=== PATIENT | female | born 1995 | race Caucasian/White ===

== ENCOUNTER 2019-02-21 22:53 | Observation (INO) ==
[2019-02-21 23:28] LABS: Basophils % 0.3 %; Eosinophils % 0.3 %; Hematocrit 41.3 % (35.3-44.9); Hemoglobin 14.6 g/dL (11.5-15.4); Immature Granulocytes % 0.5 % (0-4); Lymphocytes # 1.7 K/mcL (0.6-4.6); Lymphocytes % 14.2 %; Mean Corpuscular HGB Conc 35.4 g/dL (31.6-35.5); Mean Corpuscular Hemoglobin 31.3 pg (28.0-33.3); Mean Corpuscular Volume 88.4 fL (83.0-100.0); Mean Platelet Volume 10.4 fL (9.4-12.4); Monocytes # 1.1 K/mcL (0.0-1.3); Monocytes % 8.8 %; Platelet Count 321 K/mcL (140-400); Red Blood Count 4.67 M/mcL (3.82-4.97); Segmented Neutrophils % 75.9 %
[2019-02-21 23:29] LABS: White Blood Count 11.9 K/mcL (4.3-11.1)
[2019-02-22 00:37] LABS: Bacteria,Urine Moderate per hpf (None-Few); Bilirubin,Urine Small (Negative); Blood,Urine Negative (Negative); Clarity,Urine Cloudy (Clear); Color,Urine Dark Yellow (Yellow); Glucose,Urine (UA) Normal (Normal); Ketones,Urine >=160 mg/dL (Negative); Leukocyte Esterase,Urine Moderate (Negative); Nitrite,Urine Negative (Negative); Protein,Urine 30 mg/dL (Neg-Trace); Specific Gravity,Urine > 1.030 (1.010-1.025); Squamous Epithelial Cell,Urine Many per lpf (None-Few); Urobilinogen,Urine Normal (Normal); WBC,Urine 15-30 per hpf (0-3)
[2019-02-22 00:43] LABS: BUN/Creatinine Ratio 10 (6-26); Blood Urea Nitrogen 6 mg/dL (6-20); Calcium 9.8 mg/dL (8.6-10.3); Carbon Dioxide 17 mEq/L (23-29); Chloride 104 mEq/L (98-107); Glucose 86 mg/dL (70-105); Osmolality,Calculated 277 (280-300); Potassium 3.4 mEq/L (3.5-5.1); Sodium 135 mEq/L (136-145); eGFR For African Americans > 60 (> 60); eGFR For Non-African Americans > 60 (> 60)
[2019-02-22 01:09] LABS: Mucus,Urine Moderate per lpf (Few)
[2019-02-22 01:10] LABS: Hyaline Casts,Urine None Seen per lpf (None-Few)
[2019-02-22] MEDS ORDERED: 0.9 % Sodium Chloride 1,000 ML IVC ONE (04:08)
[2019-02-22] MEDS ORDERED: Metoclopramide 10 MG/2 ML VIAL IVP ONE (04:29)
[2019-02-22] MEDS ORDERED: Pyridostigmine Br 60 MG TABLET PO ONE (04:31)
[2019-02-22] MEDS ORDERED: Pyridoxine (B-6) 50 MG TABLET PO ONE (04:45)
[2019-02-22] MEDS ORDERED: Ondansetron 4 MG/2 ML VIAL IVP ONE (06:55)
[2019-02-22] MEDS ORDERED: Naloxone 0.4 MG/ML INJ IVP PRN ×2 (08:37→08:38)
[2019-02-22] MEDS: Ondansetron 4 MG/2 ML VIAL IVP PRN ×2 (09:07→16:37)
[2019-02-22] MEDS: 0.9 % Sodium Chloride 1,000 ML IVC SCH ×2 (09:07→18:23)
[2019-02-22] MEDS: Nitrofurantoin (BID) 100 MG CAPSULE PO SCH ×2 (12:35→21:00)
[2019-02-23] MEDS: Ondansetron 4 MG/2 ML VIAL IVP PRN ×2 (06:46→10:26)
[2019-02-23] MEDS: Nitrofurantoin (BID) 100 MG CAPSULE PO SCH (08:49)
[2019-02-23] MEDS ORDERED: Prenatal Vit/FA 1 EACH TABLET PO SCH (09:00)
[2019-02-23] MEDS ORDERED: Ondansetron ODT 4 MG TAB.RAPDIS SL PRN (10:50)
[2019-02-23] MEDS: Ondansetron ODT 4 MG TAB.RAPDIS SL PRN ×2 (14:36→20:32)
[2019-02-23 15:03] LABS: BUN/Creatinine Ratio 6 (6-26); Blood Urea Nitrogen 3 mg/dL (6-20); Calcium 9.2 mg/dL (8.6-10.3); Carbon Dioxide 19 mEq/L (23-29); Chloride 107 mEq/L (98-107); Glucose 84 mg/dL (70-105); Magnesium 1.7 mg/dL (1.6-2.6); Osmolality,Calculated 276 (280-300); Potassium 3.8 mEq/L (3.5-5.1); Sodium 135 mEq/L (136-145); eGFR For African Americans > 60 (> 60); eGFR For Non-African Americans > 60 (> 60)
[2019-02-23] MEDS ORDERED: 0.9 % Sodium Chloride 1,000 ML IVC SCH (15:45)
[2019-02-24 07:54] VITALS: BP 140/80
== END 2019-02-24 10:00 | disposition home or self-care (01) ==
LOC: EMEROOARM 22:53 → 1NENUOBS 22:53 → SUATTDRO 02-22 11:19 → 1NENUOBS 02-22 11:42
PROVIDERS: ADMIT Internal Medicine; ATTEND Internal Medicine

== ENCOUNTER 2019-04-16 10:31 | Observation (INO) ==
[2019-04-16] MEDS ORDERED: Ondansetron 4 MG/2 ML VIAL IVP ONE ×2 (10:38→12:20)
[2019-04-16 10:59] LABS: Bilirubin,Urine Negative (Negative); Blood,Urine Negative (Negative); Clarity,Urine Cloudy (Clear); Color,Urine Yellow (Yellow); Glucose,Urine (UA) Normal (Normal); Ketones,Urine >=160 mg/dL (Negative); Leukocyte Esterase,Urine Large (Negative); Nitrite,Urine Negative (Negative); Protein,Urine 30 mg/dL (Neg-Trace); Specific Gravity,Urine 1.028 (1.010-1.025); Urobilinogen,Urine Normal (Normal)
[2019-04-16 11:00] LABS: Bacteria,Urine Moderate per hpf (None-Few); Hyaline Casts,Urine Few per lpf (None-Few); RBC,Urine 0-3 per hpf (0-3); Squamous Epithelial Cell,Urine Many per lpf (None-Few); WBC,Urine 50-100 per hpf (0-3)
[2019-04-16] MEDS ORDERED: cefTRIAXone 1,000 MG in Water for inj. (sterile) 10 ML IVP ONE (11:03)
[2019-04-16] MEDS: 0.9 % Sodium Chloride 1,000 ML IVC SCH ×2 (11:03→11:11)
[2019-04-16 11:35] LABS: Basophils % 0.2 %; Eosinophils % 0.1 %; Hematocrit 37.5 % (35.3-44.9); Immature Granulocytes % 0.9 % (0-4); Mean Corpuscular HGB Conc 34.7 g/dL (31.6-35.5); Mean Corpuscular Volume 89.5 fL (83.0-100.0); Mean Platelet Volume 10.9 fL (9.4-12.4); Monocytes % 6.3 %; Neutrophils # 11.9 K/mcL (1.6-8.9); Platelet Count 289 K/mcL (140-400); Red Blood Count 4.19 M/mcL (3.82-4.97); Red Cell Distribution Width 12.7 % (11.5-14.5); Segmented Neutrophils % 79.5 %
[2019-04-16 11:42] LABS: BUN/Creatinine Ratio 7 (6-26); Blood Urea Nitrogen 3 mg/dL (6-20); Calcium 9.2 mg/dL (8.6-10.3); Carbon Dioxide 16 mEq/L (23-29); Chloride 107 mEq/L (98-107); Glucose 76 mg/dL (70-105); Osmolality,Calculated 273 (280-300); Potassium 3.6 mEq/L (3.5-5.1); Sodium 134 mEq/L (136-145); eGFR For African Americans > 60 (> 60); eGFR For Non-African Americans > 60 (> 60)
[2019-04-16] MEDS ORDERED: Naloxone 0.4 MG/ML INJ IVP PRN (12:47)
[2019-04-16] MEDS: Ringers Solution, Lactated 1,000 ML IVC SCH (14:17)
[2019-04-16] MEDS: Ondansetron 4 MG/2 ML VIAL IVP PRN (16:23)
[2019-04-16] MEDS ORDERED: Acetaminophen 325 MG TABLET PO PRN (22:59)
[2019-04-17] MEDS: Ringers Solution, Lactated 1,000 ML IVC SCH ×3 (00:15→23:24)
[2019-04-17] MEDS: Ondansetron 4 MG/2 ML VIAL IVP PRN ×3 (00:24→17:24)
[2019-04-17 05:32] LABS: Basophils % 0.3 %; Eosinophils % 0.3 %; Hematocrit 35.5 % (35.3-44.9); Immature Granulocytes % 0.8 % (0-4); Lymphocytes # 2.1 K/mcL (0.6-4.6); Lymphocytes % 14.8 %; Mean Corpuscular HGB Conc 33.8 g/dL (31.6-35.5); Mean Corpuscular Hemoglobin 30.7 pg (28.0-33.3); Mean Corpuscular Volume 90.8 fL (83.0-100.0); Mean Platelet Volume 10.5 fL (9.4-12.4); Monocytes % 6.6 %; Platelet Count 255 K/mcL (140-400); Red Blood Count 3.91 M/mcL (3.82-4.97); Red Cell Distribution Width 12.9 % (11.5-14.5); Segmented Neutrophils % 77.2 %; White Blood Count 14.3 K/mcL (4.3-11.1)
[2019-04-17 05:52] LABS: BUN/Creatinine Ratio 5 (6-26); Blood Urea Nitrogen 2 mg/dL (6-20); Calcium 8.4 mg/dL (8.6-10.3); Carbon Dioxide 16 mEq/L (23-29); Chloride 108 mEq/L (98-107); Glucose 59 mg/dL (70-105); Osmolality,Calculated 270 (280-300); Potassium 3.6 mEq/L (3.5-5.1); Sodium 133 mEq/L (136-145); eGFR For African Americans > 60 (> 60); eGFR For Non-African Americans > 60 (> 60)
[2019-04-17] MEDS: cefTRIAXone 1,000 MG in Water for inj. (sterile) 10 ML IVP SCH (11:14)
[2019-04-17] MEDS: *HR* Promethazine 25 MG/ML VIAL IVP PRN ×2 (11:14→19:36)
[2019-04-18 01:44] LABS: Basophils # 0.1 K/mcL (0.0-0.2); Basophils % 0.4 %; Eosinophils % 0.3 %; Hemoglobin 12.4 g/dL (11.5-15.4); Immature Granulocytes % 0.9 % (0-4); Lymphocytes # 1.6 K/mcL (0.6-4.6); Lymphocytes % 13.6 %; Mean Corpuscular HGB Conc 34.4 g/dL (31.6-35.5); Mean Corpuscular Hemoglobin 31.7 pg (28.0-33.3); Mean Corpuscular Volume 92.1 fL (83.0-100.0); Mean Platelet Volume 10.9 fL (9.4-12.4); Monocytes # 0.7 K/mcL (0.0-1.3); Neutrophils # 9.4 K/mcL (1.6-8.9); Platelet Count 259 K/mcL (140-400); Red Blood Count 3.91 M/mcL (3.82-4.97); Red Cell Distribution Width 12.9 % (11.5-14.5); Segmented Neutrophils % 78.8 %; White Blood Count 11.9 K/mcL (4.3-11.1)
[2019-04-18 01:50] LABS: BUN/Creatinine Ratio 4 (6-26); Blood Urea Nitrogen 2 mg/dL (6-20); Calcium 8.9 mg/dL (8.6-10.3); Carbon Dioxide 19 mEq/L (23-29); Chloride 107 mEq/L (98-107); Glucose 80 mg/dL (70-105); Osmolality,Calculated 277 (280-300); Potassium 3.1 mEq/L (3.5-5.1); Sodium 136 mEq/L (136-145); eGFR For African Americans > 60 (> 60); eGFR For Non-African Americans > 60 (> 60)
[2019-04-18] MEDS: Ringers Solution, Lactated 1,000 ML IVC SCH (08:59)
[2019-04-18] MEDS: cefTRIAXone 1,000 MG in Water for inj. (sterile) 10 ML IVP SCH (11:16)
[2019-04-18] MEDS: Ondansetron 4 MG/2 ML VIAL IVP PRN (13:00)
[2019-04-18 15:14] VITALS: BP 121/84
== END 2019-04-18 18:16 | disposition home or self-care (01) ==
LOC: 3BNU 10:31 → EMEROOARM 10:31 → SUATTDRO 12:50 → 3BNU 13:30
PROVIDERS: ADMIT Internal Medicine; ATTEND Internal Medicine

== ENCOUNTER → 2019-06-11 16:45 | Observation (INO) ==
[2019-06-11 14:33] LABS: Bilirubin,Urine Negative (Negative); Blood,Urine Negative (Negative); Color,Urine Yellow (Yellow); Glucose,Urine (UA) Normal (Normal); Ketones,Urine 15 mg/dL (Negative); Leukocyte Esterase,Urine Large (Negative); Nitrite,Urine Negative (Negative); PH,Urine 7.5 pH Units (5.0-8.0); Protein,Urine Negative (Neg-Trace); Specific Gravity,Urine 1.017 (1.010-1.025); Urobilinogen,Urine Normal (Normal)
[2019-06-11 14:36] LABS: Bacteria,Urine Moderate per hpf (None-Few); Hyaline Casts,Urine None Seen per lpf (None-Few); RBC,Urine 0-3 per hpf (0-3); Squamous Epithelial Cell,Urine Many per lpf (None-Few)
[2019-06-11 14:40] LABS: Clarity,Urine Slightly Hazy (Clear)
[2019-06-11 14:53] LABS: Yeast,Urine Few per hpf (None Seen)
[2019-06-11 15:51] LABS: Basophils # 0.1 K/mcL (0.0-0.2); Basophils % 0.7 %; Eosinophils # 0.1 K/mcL (0.0-0.6); Eosinophils % 0.3 %; Hematocrit 33.9 % (35.3-44.9); Hemoglobin 11.3 g/dL (11.5-15.4); Immature Granulocytes % 4.1 % (0-4); Lymphocytes # 1.8 K/mcL (0.6-4.6); Lymphocytes % 10.4 %; Mean Corpuscular HGB Conc 33.3 g/dL (31.6-35.5); Mean Corpuscular Hemoglobin 31.3 pg (28.0-33.3); Mean Corpuscular Volume 93.9 fL (83.0-100.0); Mean Platelet Volume 10.5 fL (9.4-12.4); Monocytes # 0.9 K/mcL (0.0-1.3); Neutrophils # 13.8 K/mcL (1.6-8.9); Platelet Count 333 K/mcL (140-400); Red Blood Count 3.61 M/mcL (3.82-4.97); Red Cell Distribution Width 13.4 % (11.5-14.5); Segmented Neutrophils % 79.5 %; White Blood Count 17.3 K/mcL (4.3-11.1)
[~2019-06-11 16:45] MED LIST: Ringers Solution, Lactated 1,000 ML IVC ONE
== END | disposition home or self-care (01) ==
LOC: 1NENULAB
PROVIDERS: ADMIT Obstetrics & Gynecology; ATTEND Obstetrics & Gynecology

== ENCOUNTER → 2019-08-05 23:40 | Observation (INO) ==
[2019-08-05 22:22] LABS: Bilirubin,Urine Negative (Negative); Blood,Urine Negative (Negative); Clarity,Urine Clear (Clear); Color,Urine Light-Yellow (Yellow); Glucose,Urine (UA) Normal (Normal); Ketones,Urine Negative (Negative); Leukocyte Esterase,Urine Negative (Negative); Nitrite,Urine Negative (Negative); Protein,Urine Negative (Neg-Trace); Specific Gravity,Urine 1.008 (1.010-1.025); Urobilinogen,Urine Normal (Normal)
[2019-08-05 23:22] LABS: Candida DNA Not Detected (Not Detect); Gardnerella DNA DETECTED (Not Detect); Trichomonas DNA Not Detected (Not Detect)
== END | disposition home or self-care (01) ==
LOC: 1NENULAB
PROVIDERS: ADMIT Obstetrics & Gynecology; ATTEND Obstetrics & Gynecology

== ENCOUNTER → 2019-09-16 14:45 | Observation (INO) ==
[2019-09-16 13:37] LABS: Basophils # 0.2 K/mcL (0.0-0.2); Basophils % 0.9 %; Eosinophils # 0.1 K/mcL (0.0-0.6); Eosinophils % 0.3 %; Hematocrit 32.5 % (35.3-44.9); Hemoglobin 10.6 g/dL (11.5-15.4); Immature Granulocytes % 5.5 % (0-4); Lymphocytes % 9.8 %; Mean Corpuscular HGB Conc 32.6 g/dL (31.6-35.5); Mean Corpuscular Hemoglobin 30.7 pg (28.0-33.3); Mean Corpuscular Volume 94.2 fL (83.0-100.0); Mean Platelet Volume 10.9 fL (9.4-12.4); Monocytes # 1.4 K/mcL (0.0-1.3); Monocytes % 6.7 %; Neutrophils # 15.8 K/mcL (1.6-8.9); Platelet Count 242 K/mcL (140-400); Red Blood Count 3.45 M/mcL (3.82-4.97); Red Cell Distribution Width 15.1 % (11.5-14.5); Segmented Neutrophils % 76.8 %; White Blood Count 20.6 K/mcL (4.3-11.1)
[2019-09-16 13:52] LABS: Protein/Creatinine Ratio,Urine 0.17 mg/mg (0.00-0.20)
[2019-09-16 13:56] LABS: Alanine Aminotransferase 5 Units/L (7-52); Aspartate Amino Transferase 9 Units/L (13-39); BUN/Creatinine Ratio 8 (6-26); Blood Urea Nitrogen 4 mg/dL (6-20); Lactate Dehydrogenase 120 Units/L (140-271); Uric Acid 4.4 mg/dL (2.3-7.6); eGFR For African Americans > 60 (> 60); eGFR For Non-African Americans > 60 (> 60)
== END | disposition home or self-care (01) ==
LOC: 1NENULAB
PROVIDERS: ADMIT Obstetrics & Gynecology; ATTEND Obstetrics & Gynecology

== ENCOUNTER 2019-09-21 15:03 | Inpatient (IN) ==
[2019-09-21 12:44] LABS: Candida DNA DETECTED (Not Detect); Gardnerella DNA DETECTED (Not Detect); Trichomonas DNA Not Detected (Not Detect)
[2019-09-21] MEDS ORDERED: Azithromycin 500 MG in 0.9 % Sodium Chloride 250 ML IVPB ONE (15:32)
[2019-09-21] MEDS ORDERED: Naloxone 0.4 MG/ML INJ IVP PRN (15:32)
[2019-09-21] MEDS ORDERED: Lidocaine 1% 20 ML MDV ID PRN (15:32)
[2019-09-21] MEDS ORDERED: Metoclopramide 10 MG/2 ML VIAL IVP PRN (15:32)
[2019-09-21] MEDS ORDERED: Ondansetron 4 MG/2 ML VIAL IVP PRN (15:32)
[2019-09-21] MEDS ORDERED: Famotidine 20 MG/2 ML VIAL IVP PRN (15:32)
[2019-09-21] MEDS ORDERED: Ringers Solution, Lactated 1,000 ML IVC SCH (15:45)
[2019-09-21 16:11] LABS: Hematocrit 33.9 % (35.3-44.9); Hemoglobin 10.8 g/dL (11.5-15.4); Mean Corpuscular HGB Conc 31.9 g/dL (31.6-35.5); Mean Corpuscular Hemoglobin 30.4 pg (28.0-33.3); Mean Corpuscular Volume 95.5 fL (83.0-100.0); Mean Platelet Volume 10.3 fL (9.4-12.4); Platelet Count 342 K/mcL (140-400); Red Blood Count 3.55 M/mcL (3.82-4.97); Red Cell Distribution Width 15.3 % (11.5-14.5); White Blood Count 20.5 K/mcL (4.3-11.1)
[2019-09-21 16:13] LABS: Amphetamine Screen,Urine Negative ng/mL (Cutoff=1000); Barbiturate Screen,Urine Negative ng/mL (Cutoff=200); Benzodiazepines Screen,Urine Negative ng/mL (Cutoff=200); Cannabinoid Screen,Urine Positive ng/mL (Cutoff = 50); Cocaine Screen,Urine Negative ng/mL (Cutoff= 300); Opiate Screen,Urine Negative ng/mL (Cutoff=300); Phencyclidine Screen,Urine Negative ng/mL (Cutoff=25)
[2019-09-21 16:48] LABS: Lymphocytes # 0.8 K/mcL (0.6-4.6); Monocytes # 0.2 K/mcL (0.0-1.3); Neutrophils # 19.5 K/mcL (1.6-8.9); Platelet Estimate Normal (Normal)
[2019-09-21] MEDS ORDERED: Acetaminophen 325 MG TABLET PO ONE (19:40)
[2019-09-21] MEDS: *HR* FentaNYL (PF) 100 MCG/2 ML VIAL IVP PRN ×2 (19:55→23:09)
[2019-09-21] MEDS ORDERED: Oxytocin 20 units/ LR 1000 mL 20 UNIT/1,000 ML BAG IVC ONE (20:25)
[2019-09-21] MEDS ORDERED: Oxytocin 20 units/ LR 1000 mL 20 UNIT/1,000 ML BAG IVC SCH (20:30)
[2019-09-22] MEDS ORDERED: EPHEDrine 50 MG/ML VIAL IVP PRN (00:03)
[2019-09-22] MEDS ORDERED: *HR* FentaNYL (PF) 100 MCG/2 ML VIAL EP ONE (00:03)
[2019-09-22] MEDS ORDERED: Ropivacaine/PF 0.2% 20 ML VIAL EP ONE (00:03)
[2019-09-22] MEDS ORDERED: Ondansetron 4 MG/2 ML VIAL IVP PRN (00:03)
[2019-09-22] MEDS ORDERED: Naloxone 0.4 MG/ML INJ IVP PRN (00:03)
[2019-09-22] MEDS ORDERED: Epidural Premix (fent/bupiv) 110 ML EP SCH (00:15)
[2019-09-22] MEDS ORDERED: Rho Immune Globulin 1,500 UNIT SYRINGE IM PRN (09:45)
[2019-09-22] MEDS ORDERED: Lanolin 7 G OINT...G. TP PRN (09:45)
[2019-09-22] MEDS ORDERED: Measles/Mumps/Rubella Vacc 0.5 ML VIAL SQ PRN (09:45)
[2019-09-22] MEDS ORDERED: Oxytocin 20 units/ LR 1000 mL 20 UNIT/1,000 ML BAG IVC SCH (09:45)
[2019-09-22] MEDS ORDERED: Benzocaine/Menthol 56 GM AEROSOL SPRAY TP PRN (09:45)
[2019-09-22] MEDS: Acetaminophen 325 MG TABLET PO PRN ×2 (10:17→20:11)
[2019-09-22] MEDS: Prenatal Vit/FA 1 EACH TABLET PO SCH (10:17)
[2019-09-23 07:50] VITALS: BP 116/76
[2019-09-23] MEDS: Prenatal Vit/FA 1 EACH TABLET PO SCH (08:57)
== END 2019-09-23 11:38 | disposition home or self-care (01) | DRG 807 ==
LOC: 1NENULAB → 1NENUOBS 09-22 09:22
PROVIDERS: ADMIT Obstetrics & Gynecology; ATTEND Obstetrics & Gynecology